=== PATIENT | female | born 1930 | race Caucasian/White ===

== ENCOUNTER 2017-10-09 16:03 | Emergency (ER) | payer MEDICARE, BC | END 2017-10-09 21:19 | disposition home or self-care (01) | LOC: E/R 16:03 | DX: Z43.1 Encounter for attention to gastrostomy (principal); I50.9 Heart failure, unspecified; E11.9 Type 2 diabetes mellitus without complications; Z79.4 Long term (current) use of insulin | CPT/HCPCS: 99283 ==

== ENCOUNTER 2019-01-21 10:16 | Emergency (ER) | payer MEDICARE, OTHER, BC ==
[2019-01-21] MEDS: AZITHROMYCIN 500 MG TAB PO (10:43)
== END 2019-01-21 12:50 | disposition home or self-care (01) ==
LOC: E/R 10:16
DX: J18.9 Pneumonia, unspecified organism (principal); E11.9 Type 2 diabetes mellitus without complications; I50.9 Heart failure, unspecified; Z79.4 Long term (current) use of insulin
CPT/HCPCS: 71045; 99283-25

== ENCOUNTER 2019-01-27 19:08 | Emergency (ER) | payer MEDICARE, OTHER | END 2019-01-28 | disposition home or self-care (01) | LOC: E/R 01-28 | DX: K94.23 Gastrostomy malfunction (principal); E11.9 Type 2 diabetes mellitus without complications; I50.9 Heart failure, unspecified; Z79.4 Long term (current) use of insulin | CPT/HCPCS: 74018; 99283-25 ==